=== PATIENT | female | born 1970 | race Caucasian/White ===

== ENCOUNTER 2019-12-02 18:25 | Emergency (ER) | payer MEDICAID ==
[~2019-12-02] VITALS: Ht 167.6 cm; Wt 61.2 kg
--- NOTE | 2019-12-02 18:38 | NUR ---
patient came from home complaining post biopsy of breast shaking of her head and sometimes shaking of arm.
--- NOTE | 2019-12-02 18:39 | NUR ---
patient waiting to be seen by physician.
--- NOTE | 2019-12-02 19:02 | NUR ---
report give to Desmond SIDHU
--- NOTE | 2019-12-02 19:07 | NUR ---
Pt out of ER for CT.
[2019-12-02 19:10] LABS: BASOPHILS % (AUTO) 0.4 % (0.0-2.0); EOSINOPHILS # (AUTO) 0.2 K/uL (0.0-0.7); EOSINOPHILS % (AUTO) 2.9 % (0.0-7.0); HEMATOCRIT 41.4 % (31.2-41.9); HEMOGLOBIN 14.1 g/dL (10.9-14.3); LYMPHOCYTES # (AUTO) 1.2 K/uL (20.0-40.0); LYMPHOCYTES % (AUTO) 19.5 % (20.5-51.5); MEAN CORPUSCULAR HEMOGLOBIN 28.6 uug (24.7-32.8); MEAN CORPUSCULAR HGB CONC 34 g/dL (32.3-35.6); MONOCYTES # (AUTO) 0.4 K/uL (2.0-10.0); MONOCYTES % (AUTO) 7.3 % (0.0-11.0); NEUTROPHILS # (AUTO) 4.2 K/uL (1.8-8.9); NEUTROPHILS % (AUTO) 69.9 % (38.5-71.5); PLATELET COUNT (AUTO) 276 K/uL (179-408); RED BLOOD CELL COUNT(AUTO) 4.93 MIL/uL (3.63-4.92); WHITE BLOOD COUNT (AUTO) 5.9 K/uL (3.8-11.8)
--- NOTE | 2019-12-02 19:24 | NUR ---
Pt back to ER from CT.
[2019-12-02 19:30] LABS: CREATININE 0.9 mg/dL (0.6-1.3); POTASSIUM 3.4 mmol/L (3.5-5.1)
[2019-12-02 19:37] LABS: BILIRUBIN,DIRECT 0.1 mg/dL (0.0-0.2); BILIRUBIN,TOTAL 0.4 mg/dL (0.2-1.0)
[2019-12-02 19:44] LABS: THYROID STIMULATING HORMONE 2.761 mIU/mL (0.358-3.740)
[2019-12-02] MEDS ORDERED: LORAZEPAM 2 MG/1 ML VIAL IV ONE (19:45)
[2019-12-02] MEDS ORDERED: LORAZEPAM 2 MG/1 ML VIAL ONE (19:48)
--- NOTE | 2019-12-02 20:20 | NUR ---
Dr. Browning speaking with Sis RASHID.
--- NOTE | 2019-12-02 20:25 | NUR ---
Pt provided urine sample, sent to lab.
[2019-12-02 21:04] LABS: *AMPHETAMINE, URINE NEGATIVE (NEGATIVE); *BARBITURATE, URINE NEGATIVE (NEGATIVE); *CANNABINOID, URINE NEGATIVE (NEGATIVE); *COCCAINE, URINE NEGATIVE (NEGATIVE); *OPIATE, URINE NEGATIVE (NEGATIVE); *PHENCYCLIDINE SCREEN,URINE NEGATIVE (NEGATIVE)
--- NOTE | 2019-12-02 22:50 | NUR ---
[place] patient family member arguing with Dr. Browning. Family member was unprovoked, but was yelling and being aggressive with the Doctor. Calling the Doctor a liar, although unclear what he was referring to. Dr. Browning tried to calm the patient family member, however the family member continue to be aggressive towards the Doctor. Family member then requested for this writter to get a hold of the briar shop supervisor. Telephone call to [employer] Ese and informed that patient family wanted to speak to her. NAHUM Logan who is caring for this patient transported another patient on the unit during this incident.
--- NOTE | 2019-12-02 22:55 | NUR ---
[address] [employer]se at bedside speaking with family.
--- NOTE | 2019-12-02 23:04 | NUR ---
Received transfer information from [place], spoke with February. Patient going to [facility], room 311A, accepting MD is Dr. Tabares, number to report to . ETA 2340-midnight.
--- NOTE | 2019-12-02 23:33 | NUR ---
Report given to Zaria SIDHU [facility].
--- NOTE | 2019-12-03 00:10 | NUR ---
Pt's brother came to the nursing station asking for the eta due to ambulance being late, wanted to sign AMA to just drive to [facility], informed that he needs to sign the AMA form and the doctor needs to explain to them the risk of going AMA. Pt's brother states no we fired the doctor, no need to sign anything. I explained that I need to atleast take the IV out, and pt's brother stated that he will take the IV out. Ambulance arrived to ER, report and documentation given to EMT. Patient out of ER via gurney, to be transported to [facility].
== END 2019-12-03 00:28 | disposition short-term general hospital (02) ==
LOC: ER 18:28
DX: R25.1 Tremor, unspecified (principal); F32.9 Major depressive disorder, single episode, unspecified
CPT/HCPCS: 36415; 70450; 80048; 80076; 80307; 82550; 84443; 85025; 85730; 96374; 99285; J2060; A4663